=== PATIENT | female | born 1975 | race Caucasian/White ===

== ENCOUNTER 2016-08-15 11:47 | Observation (INO) | payer OTHER ==
[2016-08-15] MEDS ORDERED: Phenergan 25 MG INJ IV PRN (12:02)
[2016-08-15 12:17] LABS: BASOPHIL % 0.3 % (0.0-0.4); Eosinophil % 0.7 % (0.00-5.0); Granulocytes % 67.7 % (36.0-66.0); Lymphocytes % 22.9 % (24.0-44.0); Mean Cell Volume 90.1 fl (78-100); Mean Corpuscular Hemoglobin 30.2 pg (26-32); Mean Platelet Volume 9.6 fl (6-9.5); Monocytes % 8.4 % (0.0-12.0); Platelet Count 294 K/mm3 (150-450); Red Blood Count 4.64 M/mm3 (4.1-5.4); Red Cell Distribution Width 13.1 % (11.5-14.0); White Blood Count 15.1 K/mm3 (4.0-10.5)
[2016-08-15] MEDS: SUBLIMAZE 100 MCG/2 ML IV PRN ×3 (12:17→17:47)
[2016-08-15] MEDS ORDERED: Lactated Ringers 1,000 ML IV SCH ×2 (12:30→13:30)
[2016-08-15 12:46] LABS: ALBUMIN 3.7 g/dL (3.4-5.0); ALKALINE PHOSPHATASE 63 U/L (46-116); ANION GAP 15.9 MEQ/L (5-15); BILIRUBIN,TOTAL 0.2 mg/dL (0.2-1.0); BLOOD UREA NITROGEN 16 mg/dL (9-20); CHLORIDE 107 mEq/L (98-107); Carbon Dioxide 22.6 mEq/L (21-32); Glucose 95 MG/DL (70-110); LIPASE 109 U/L (73-393); Potassium 3.8 mEq/L (3.5-5.1); SGOT/AST 21 U/L (15-37); SGPT/ALT 16 U/L (12-78); SODIUM 142 mEq/L (136-145); Total Protein 7.1 gm/dL (6.4-8.2)
--- NOTE | 2016-08-15 13:32 | XRAY ---
Indication: Right lower quadrant pain for 4 days. Multiple contiguous axial images obtained through the abdomen and pelvis prior to and following 80 cc Isovue 370 contrast only. Comparison: None Lung bases are clear. Heart is not enlarged. Noncontrasted images through the abdomen are negative for pathologic visceral calcifications/calculi. Noncontrasted stomach and bowel loops appear nonobstructed. Normal appendix. Previous cholecystectomy. Postcontrast images demonstrate normal visceral enhancement and renal excretion. 4 cm left ovary ruptured/leaking cyst with small cul-de-sac fluid. Smaller 2 cm right ovary cyst. Remaining liver, pancreas, spleen, adrenal glands, kidneys, ureters, bladder, uterus, and aorta appear unremarkable. No pathologic retroperitoneal lymphadenopathy. Osseous structures intact. Impression: 1. 4 cm left ovary ruptured/leaking cyst with small cul-de-sac fluid. Smaller 2 cm right ovary cyst. Ultrasound may yield further information if there remains further clinical concern. 2. Remaining CT abdomen/pelvis with and without contrast exam is negative. CT DI 19.49
[2016-08-15 14:18] LABS: COMPLETE URINE MICROSCOPIC? NO; Collection Type CCMS
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
[2016-08-15] MEDS ORDERED: ROCEPHIN 1 Gm-D5w 50 ml Bag** 1 G/50 ML IVPB IV SCH (15:45)
[2016-08-15 16:02] VITALS: BP 115/66; PULSE 66; O2SAT 97
--- NOTE | 2016-08-15 18:02 | PCM.DCORD ---
- Discharge Discharge Date: 08/15/16 Disposition: Home, Self-Care Condition: Stable Prescriptions: New Ibuprofen 600 mg PO TID #90 tablet Oxycodone HCl/Acetaminophen [Percocet 5-325 mg Tablet] 1 each PO Q4H PRN #20 tablet PRN Reason: Pain Doxycycline Hyclate 100 mg [Vibramycin 100 MG] 100 mg PO BID #20 tab Ondansetron HCl [Zofran] 4 mg PO Q4H PRN #20 tablet PRN Reason: Nausea Follow up with: GINNA UNGER [Primary Care Provider] - 1 Week
--- NOTE | 2016-08-15 20:54 | PCM.HP ---
History of Present Illness - Chief Complaint Chief Complaint: abd pain Date: 08/15/16 History of Present Illness: is a 41 year old female. presented to clinic with right lower quadrant pain that awoke her from sleep 3 days prior and advanced to chills, rigors, no recorded fever, nausea, no appetitie, had not eaten all day, no diarrhea no dysuria or flank pain. She had rlq tenderness and guarding with some rebound postive psoas and obturator. Sent for direct admission for CT imaging pain and nasuea control with iv fluids. CT showed ruptured ovarian cyst and elevated wbc. surgery did see her and did not feel it was appendicitis but recommended abx to rule out a pid worst case scenerio. after nausea and pian medications she was able to tolerate po and did eat had persistent tenderness but was wanting to go home and was discharged on po pain and nausea control and complete coarse of doxy. She had dose of 1g rocephin in hospital. - Review of Systems Constitutional: Chills, Fatigue, No Fever Eyes: No Symptoms Ears, Nose, & Throat: No Symptoms Respiratory: No Symptoms Cardiac: No Symptoms Abdominal/Gastrointestinal: Abdominal Pain, Nausea, No Vomiting, No Diarrhea, No Dysphagia Genitourinary Symptoms: No Dysuria, No Frequency, No Hematuria, No Urgency, No Vaginal Bleeding, No Vaginal Discharge Musculoskeletal: No Arthralgias, No Back Pain, No Joint Pain, No Joint Swelling Skin: No Cellulitis, No Decubiti, No Induration, No Pruritis, No Rash Neurological: No Dizziness, No Focal Weakness, No Gait Changes Psychological: No Alcohol Abuse, No Drug Abuse, No Anxiety, No Depression Endocrine: No Polyuria, No Polydipsia Hematologic/Lymphatic: No Anemia Medications & Allergies Home Medications: Home Medication List Doxycycline Hyclate 100 mg [Vibramycin 100 MG] 100 mg PO BID #20 tab 08/15 [Rx] Ibuprofen 600 mg PO TID #90 tablet 08/15/16 [Rx] Ondansetron HCl [Zofran] 4 mg PO Q4H PRN #20 tablet 08/15/16 [Rx] Oxycodone HCl/Acetaminophen [Percocet 5-325 mg Tablet] 1 each PO Q4H PRN #20 tablet 08/15/16 [Rx] Allergies/Adverse Reactions: Allergies Allergy/AdvReac Type Severity Reaction Status Date / Time morphine Allergy Nausea Verified 11/17/15 00:25 - Past Medical History Past Medical History: Yes Neurological History: No Pertinent History ENT History: No Pertinent History Cardiac History: Arrhythmia Respiratory History: No Pertinent History Endocrine Medical History: No Pertinent History Musculoskelatal History: No Pertinent History GI Medical History: No Pertinent History History: No Pertinent History Pyscho-Social History: No Pertinent History Reproductive Disorders: No Pertinent History - Female History Hx Last Menstrual Period: 07/27/2016 Are you now?: No - Past Surgical History Past Surgical History: Yes Neuro Surgical History: No Pertinent History Cardiac History: Cardiac Catheterization, Pacemaker Respiratory Surgery: No Pertinent History GI Surgical History: Cholecystectomy Genitourinary Surgical Hx: No Pertinent History Musculskeletal Surgical Hx: No Pertinent History Female Surgical History: Tubal Ligation Other Surgical History: HEART ABLATION THEN A PACEMAKER A KID. - Social History Smoking Status: Current every day smoker How long have you smoked: 25 Exposure to second hand smoke: No Alcohol: None Drug Use: none - Physical Exam Vital Signs: Vital Signs - 24 hr Temp Pulse Resp BP Pulse Ox 08/15/16 16:00 97.6 F 66 18 115/66 97 08/15/16 12:00 98.0 F 93 H 24 145/64 95 General Appearance: mild distress, alert Neurologic Exam: alert, oriented x 3, cooperative, normal mood/affect, nml cerebellar function, nml station & gait, sensation nml, No motor deficits Eye Exam: PERRL/EOMI, eyes nml inspection Ears, Nose, Throat Exam: normal ENT inspection, TMs normal, pharynx normal, moist mucous membranes Neck Exam: normal inspection, non-tender, supple, full range of motion Respiratory Exam: normal breath sounds, lungs clear, No respiratory distress Cardiovascular Exam: regular rate/rhythm, normal heart sounds, normal peripheral pulses Gastrointestinal/Abdomen Exam: soft, normal bowel sounds, tenderness (right lower quadrant with guarding and mild rebound), No mass Back Exam: normal inspection, normal range of motion, No CVA tenderness, No vertebral tenderness Extremity Exam: normal inspection, normal range of motion, pelvis stable Skin Exam: normal color, warm, dry, No rash Lymphatic Exam: No adenopathy Results - Labs Lab/Micro Results: Lab Results-Last 24 Hours 08/15/16 08/15/16 08/15/16 Range/Units 12:05 12:05 13:15 WBC 15.1 H (4.0-10.5) K/mm3 RBC 4.64 (4.1-5.4) M/mm3 Hgb 14.0 (12.0-16.0) gm/dl Hct 41.8 (35-47) % MCV 90.1 (78-100) fl MCH 30.2 (26-32) pg MCHC 33.5 (32-36) g/dl RDW 13.1 (11.5-14.0) % Plt Count 294 (150-450) K/mm3 MPV 9.6 H (6-9.5) fl Gran % 67.7 H (36.0-66.0) % Lymphocytes % 22.9 L (24.0-44.0) % Monocytes % 8.4 (0.0-12.0) % Eosinophils % 0.7 (0.00-5.0) % Basophils % 0.3 (0.0-0.4) % Basophils # 0.05 (0-0.4) Sodium 142 (136-145) mEq/L Potassium 3.8 (3.5-5.1) mEq/L Chloride 107 (98-107) mEq/L Carbon Dioxide 22.6 (21-32) mEq/L Anion Gap 15.9 H (5-15) MEQ/L BUN 16 (9-20) mg/dL Creatinine 0.92 (0.55-1.30) mg/dl Estimated GFR > 60 ML/MIN Glucose 95 (70-110) MG/DL Calcium 8.7 (8.5-10.1) mg/dL Total Bilirubin 0.2 (0.2-1.0) mg/dL AST 21 (15-37) U/L ALT 16 (12-78) U/L Alkaline Phosphatase 63 (46-116) U/L Serum Total Protein 7.1 (6.4-8.2) gm/dL Albumin 3.7 (3.4-5.0) g/dL Lipase 109 (73-393) U/L Ur Collection Type CCMS Urine Color YELLOW (YELLOW) Urine Appearance CLEAR (CLEAR) Urine pH 6.0 (5-6) Ur Specific [place] 1.010 (1.005-1.025) Urine Protein NEGATIVE (Negative) Urine Glucose (UA) NEGATIVE (NEGATIVE) mg/dL Urine Ketones NEGATIVE (NEGATIVE) Urine Nitrite NEGATIVE (NEGATIVE) Urine Bilirubin NEGATIVE (NEGATIVE) Urine Urobilinogen 0.2 (0-1) mg/dL Urine WBC (Auto) NEGATIVE (NEGATIVE) Urine RBC (Auto) NEGATIVE (0-5) Navjot/ul Specimen Received 08-15-16 1410 - Radiology Impressions Radiology Exams & Impressions: Radiology Procedures Category Date Time Status ABDOMEN AND PELVIS W&WO CONTRA [CT] Stat Exams 08/15/16 12:05 Completed Assessment/Plan (1) Abdominal pain Status: Acute Qualifiers: Abdominal location: right lower quadrant Qualified Code(s): R10.31 - Right lower quadrant pain Assessment & Plan: appendicitis ruled out Code(s): R10.9 - UNSPECIFIED ABDOMINAL PAIN (2) Ruptured ovarian cyst Status: Acute (3) Peritonitis Status: Acute Assessment & Plan: very mild with leukocytosis and this is likely from the ruptured ovarian cyst cannot rule out PID thus treated with rocephin iv and coarse of doxy d/c home po pain and nausea control Code(s): K65.9 - PERITONITIS, UNSPECIFIED
== END 2016-08-15 19:10 | disposition home or self-care (01) ==
LOC: MED SURG 11:47
PROVIDERS: ADMIT Family Medicine; ATTEND Family Medicine
DX: R10.31 Right lower quadrant pain (principal); N83.209 Unspecified ovarian cyst, unspecified side; K65.9 Peritonitis, unspecified
CPT/HCPCS: 36415; 74178; 80053; 81002; 83690; 84703; 85025; G0378; J0696; J2550; J3010